=== PATIENT | male | born 1965 | race Caucasian/White ===

== ENCOUNTER 2017-02-28 11:34 | Emergency (ER) | payer OTHER ==
[2017-02-28 13:01] LABS: RED BLOOD COUNT 5.03 M/UL (4.20-5.50); WHITE BLOOD COUNT 7.4 K/UL (4.5-11.0)
[2017-02-28 13:16] LABS: BUN/CREATININE RATIO 15 (0-10)
== END 2017-02-28 16:40 | disposition home or self-care (01) ==
LOC: ER1 11:34
PROVIDERS: Emergency Medicine
DX: R10.31 Right lower quadrant pain (principal); E11.65 Type 2 diabetes mellitus with hyperglycemia; Z88.5 Allergy status to narcotic agent
CPT/HCPCS: 36415; 71020; 80053; 81001; 82150; 83690; 85025; 87086; 96374; 96375; 99284; J2270; J2405; J7030; J7050; Q9962